=== PATIENT | female | born 1940 | race Caucasian/White ===

== ENCOUNTER 2022-10-06 08:06 | Day surgery (SDC) | payer OTHER ==
[~2022-10-06] VITALS: Ht 177.8 cm; Wt 69.9 kg
[~2022-10-06 08:06] MED LIST: CEFAZOLIN SOD 1 GM/ ISO 50 ML PREMIX IV ONE
[2022-10-06] MEDS ORDERED: ONDANSETRON HCL 4 MG/2 ML VIAL ONE ×2 (10:53→12:35)
[2022-10-06] MEDS ORDERED: KETOROLAC TROMETHAMINE 30 MG VIAL ONE (10:53)
[2022-10-06] MEDS ORDERED: fentaNYL CITRATE/PF 100 MCG/2 ML AMP ONE (10:53)
[2022-10-06] MEDS ORDERED: DESFLURANE 15 MIN GAS INH ONE (10:53)
[2022-10-06] MEDS ORDERED: DEXAMETHASONE SOD PHOSPHATE 4 MG/ML VIAL ONE (10:53)
[2022-10-06] MEDS ORDERED: PROPOFOL 200MG/ 20ML VIAL (DIPRIVAN) IV ONE (10:53)
[2022-10-06] MEDS ORDERED: METOCLOPRAMIDE HCL 10 MG/2 ML VIAL ONE (10:53)
[2022-10-06] MEDS ORDERED: NS IRRIG SOLN 1000 ML IR ONE (10:53)
[2022-10-06] MEDS ORDERED: LR 1,000 ML IV.SOLN IV ONE (10:53)
[2022-10-06] MEDS ORDERED: BUPIVACAINE /EPINEPHRINE/PF 0.5% 30 ML VIAL INJ ONE (10:53)
[2022-10-06] MEDS ORDERED: ONDANSETRON HCL 4 MG/2 ML VIAL IVP PRN (12:15)
[2022-10-06] MEDS ORDERED: HYDROcodone/ACETAMIN 5-325 MG TAB (NORCO/ VICODIN) PO PRN (12:15)
[2022-10-06] MEDS ORDERED: MORPHINE 4 MG INJ. 4 MG/ML VIAL IVP PRN (12:15)
[2022-10-06] MEDS ORDERED: MORPHINE 4 MG INJ. 4 MG/ML VIAL ONE (12:36)
[2022-10-06 14:51] VITALS: BP_SYST 124
== END 2022-10-06 14:32 | disposition home or self-care (01) ==
LOC: SDS 08:06 → SMU 08:08 → SDS 14:32
PROVIDERS: ATTEND Surgery
DX: C43.72 Malignant melanoma of left lower limb, including hip (principal); I10 Essential (primary) hypertension; F41.9 Anxiety disorder, unspecified; Z20.822 Contact with and (suspected) exposure to COVID-19; Z90.49 Acquired absence of other specified parts of digestive tract; Z98.49 Cataract extraction status, unspecified eye; Z79.899 Other long term (current) drug therapy
CPT/HCPCS: 11606; 87081; 36415; 88305; 87426; 13121; 13122; J3490; J0690; J1100; J1885; J2765; J2405; J2704; J3010; J2270; J7120

== ENCOUNTER 2023-01-14 07:17 | Day surgery (SDC) | payer OTHER ==
[~2023-01-14] VITALS: Ht 177.8 cm; Wt 70.8 kg
[~2023-01-14 07:17] MED LIST changes: -CEFAZOLIN SOD 1 GM/ ISO 50 ML PREMIX IV ONE; +CEFAZOLIN SOD 2 GM in D5W 50 ML IV ONE
[2023-01-14 09:14] LABS: ANION GAP 3 (5-15); CALCIUM 7.9 mg/dL (8.4-11.0); CHLORIDE 106 mmol/L (98-107); GLUCOSE 96 mg/dL (70-99); UREA NITROGEN, BLOOD 13 mg/dL (8-21)
[2023-01-14] MEDS ORDERED: PROPOFOL 200MG/ 20ML VIAL (DIPRIVAN) IV ONE (11:02)
[2023-01-14] MEDS ORDERED: LR 1,000 ML IV.SOLN IV ONE (11:02)
[2023-01-14] MEDS ORDERED: BUPIVACAINE /PF 0.25% 30 ML VIAL INJ ONE ×2 (11:02→11:21)
[2023-01-14] MEDS ORDERED: NS IRRIG SOLN 1000 ML IR ONE (11:02)
[2023-01-14] MEDS ORDERED: SEVOFLURANE 15 MIN GAS INH ONE (11:02)
[2023-01-14] MEDS ORDERED: ACETAMINOPHEN 325 MG TABLET PO ONE (11:30)
[2023-01-14] MEDS ORDERED: ONDANSETRON HCL 4 MG/2 ML VIAL IVP PRN ×2 (11:30→12:15)
[2023-01-14] MEDS ORDERED: HYDROmorphone 1 MG/ML INJ. CARTRIDGE IVP PRN (11:30)
[2023-01-14] MEDS ORDERED: METOCLOPRAMIDE HCL 10 MG/2 ML VIAL IVP PRN (11:30)
[2023-01-14] MEDS ORDERED: KETOROLAC TROMETHAMINE 30 MG VIAL IVP PRN (11:30)
[2023-01-14] MEDS ORDERED: KETOROLAC TROMETHAMINE 30 MG VIAL ONE (12:09)
[2023-01-14] MEDS ORDERED: HYDROcodone/ACETAMIN 5-325 MG TAB (NORCO/ VICODIN) PO PRN (12:15)
[2023-01-14] MEDS ORDERED: HYDROmorphone 2 MG/ML VIAL IVP PRN (12:15)
[2023-01-14] MEDS ORDERED: MORPHINE 4 MG INJ. 4 MG/ML VIAL IVP PRN (12:15)
[2023-01-14 14:57] VITALS: BP_SYST 115
== END 2023-01-14 14:27 | disposition home or self-care (01) ==
LOC: SMU 07:17 → SDS 07:17
PROVIDERS: ATTEND Surgery
DX: C44.729 Squamous cell carcinoma of skin of left lower limb, including hip (principal); M81.0 Age-related osteoporosis without current pathological fracture; Z85.3 Personal history of malignant neoplasm of breast; Z98.890 Other specified postprocedural states
CPT/HCPCS: 87081; 11602; 12032; 80048; 36415; 88304; J3490; J0690; J1885; J2704; J7060; J7120

== ENCOUNTER 2023-04-27 10:11 | Day surgery (SDC) | payer OTHER ==
[~2023-04-27] VITALS: Ht 177.8 cm; Wt 69.9 kg
[~2023-04-27 10:11] MED LIST changes: -CEFAZOLIN SOD 2 GM in D5W 50 ML IV ONE; +LR 1,000 ML IV.SOLN IV ONE; +METHYLERGONOVINE MALEATE 0.2 MG/ML AMP ONE; +METOCLOPRAMIDE HCL 10 MG/10 ML UDC ONE; +MORPHINE SULFATE 10MG/10ML PF AMP ONE; +NS IRRIG SOLN 1000 ML IR ONE; +ONDANSETRON HCL 4 MG/2 ML VIAL ONE; +ceFAZolin SODIUM 2 GM in D5W 100 ML IV ONE; +ePHEDrine sulfate 50 MG/ML VIAL ONE; +fentaNYL CITRATE/PF 100 MCG/2 ML AMP ONE
[2023-04-27] MEDS ORDERED: PROPOFOL 200MG/ 20ML VIAL (DIPRIVAN) IV ONE (13:02)
[2023-04-27] MEDS ORDERED: ONDANSETRON HCL 4 MG/2 ML VIAL ONE (13:02)
[2023-04-27] MEDS ORDERED: SEVOFLURANE 15 MIN GAS INH ONE (13:02)
[2023-04-27] MEDS ORDERED: BUPIVACAINE /PF 0.25% 30 ML VIAL INJ ONE (13:02)
[2023-04-27] MEDS ORDERED: NS IRRIG SOLN 1000 ML IR ONE (13:02)
[2023-04-27] MEDS ORDERED: HYDROmorphone 1 MG/ML INJ. CARTRIDGE IVP PRN (13:30)
[2023-04-27] MEDS ORDERED: METOCLOPRAMIDE HCL 10 MG/2 ML VIAL IVP PRN (13:30)
[2023-04-27] MEDS ORDERED: ONDANSETRON HCL 4 MG/2 ML VIAL IVP PRN ×2 (13:30→14:15)
[2023-04-27] MEDS ORDERED: KETOROLAC TROMETHAMINE 30 MG VIAL IVP PRN (13:30)
[2023-04-27] MEDS ORDERED: HYDR-3927 PO (14:13)
[2023-04-27] MEDS ORDERED: MORPHINE 4 MG INJ. 4 MG/ML VIAL IVP PRN (14:15)
[2023-04-27] MEDS ORDERED: HYDROcodone/ACETAMIN 5-325 MG TAB (NORCO/ VICODIN) PO PRN (14:15)
[2023-04-27] MEDS ORDERED: HYDROmorphone 1 MG/ML INJ. CARTRIDGE ONE (14:44)
[2023-04-27] MEDS ORDERED: IBUPROFEN 200 MG TABLET PO SCH (15:00)
[2023-04-27 15:07] VITALS: O2SAT 98
[2023-04-27 16:59] VITALS: BP_SYST 128; PULSE 65; RESP 20
== END 2023-04-27 16:35 | disposition home or self-care (01) ==
LOC: SDS 10:11 → SMU 10:12 → SDS 16:35
PROVIDERS: ATTEND Surgery
DX: C44.792 Other specified malignant neoplasm of skin of right lower limb, including hip (principal); I10 Essential (primary) hypertension; K21.9 Gastro-esophageal reflux disease without esophagitis; M19.90 Unspecified osteoarthritis, unspecified site; Z98.49 Cataract extraction status, unspecified eye; Z98.890 Other specified postprocedural states
CPT/HCPCS: 11601; 12031; 87081; 88307; J8597; J3490; J2210; J2405; J2704; J3010; J1170; J2274; J7060; J7120; 88305